=== PATIENT | male | born 1985 | race Caucasian/White ===

== ENCOUNTER 2020-10-08 18:42 | Emergency (ER) | payer BC, SELFPAY ==
--- NOTE | ~2020-10-08 | XR_ITS ---
EXAMINATION: XR CHEST CLINICAL INFORMATION: Right-sided chest pain COMPARISON: 05/19/2019 TECHNIQUE: 2 views of the chest were obtained. FINDINGS: No significant abnormality is noted involving the heart, lungs, mediastinum, bony thorax or soft tissues. XR/XR chest 2V IMPRESSION: Unremarkable examination.
[2020-10-08 20:12] VITALS: BP 150/88; PULSE 75; RESP 20; TEMP 36.6; O2SAT 98; BMI 28.3
[2020-10-08 20:38] LABS: Glucose Urine UA NEG (NEG); Leukocyte Esterase Urine NEG (NEG); Nitrite Urine NEG (NEG); Urine Blood NEG (NEG); Urine Ketones NEG (NEG); Urine Protein NEG (NEG-TRACE)
[2020-10-08 20:39] LABS: Appearance Urine CLEAR; Color Urine YELLOW
--- NOTE | 2020-10-08 21:23 | ED_ITS ---
HPI - General Adult General Chief complaint: General Medical Stated complaint: SIDE PAIN Time Seen by Provider: 10/08/20 21:21 Source: patient Mode of arrival: ambulatory History of Present Illness HPI narrative: 35-year-old male presents with 2-3 weeks mid right back discomfort that does not get worse with deep inspiration or movement and is not radiating in nature. He denies any identifiable trauma, new exercise regimen, fevers, chills, cough, GI symptoms, but does endorse urinary frequency. Over the course of this time he has not taken anything for the pain other than lidocaine patch. Related Data Allergies Allergy/AdvReac Type Severity Reaction Status Date / Time No Known Allergies Allergy Verified 10/08/20 20:12 Review of Systems Review of Systems: Pertinent positives and negatives as stated in HPI 10 point review systems otherwise negative. FOR[facility]LY [facility], LATER [facility] Past Medical History Source: nursing notes reviewed Medical History No known health problems Social History Social History Advance Directives: No Advance Directives Information Provided: Yes Physical Exam Vital Signs: Vital Signs: Last Vital Signs Temp 98.7 F 10/08/20 21:58 Pulse 65 10/08/20 21:58 Resp 18 10/08/20 21:58 BP 156/86 H 10/08/20 21:58 Pulse Ox 100 10/08/20 21:58 Body Mass Index 28.3 VITAL SIGNS: Reviewed. GENERAL: Well developed, well nourished, in no acute distress. HEAD: Normocephalic/atraumatic EYES: PERRLA, EOMI OROPHARYNX: no oral lesions noted, posterior pharynx clears NECK: Supple, no adenopathy LUNGS: Normal breath sounds. No adventitious sounds or accessory muscle use. SpO2<98> CARDIOVASCULAR: Regular rate and rhythm without noted murmurs ABDOMEN: Soft, non-tender, non-distended with bowel sounds. BACK: No identifiable bowl deformity, no CVA tenderness,?Spasm NEUROLOGIC: Alert and oriented x 4. Course Course Course Narrative: 35-year-old male with history and clinical presentation consistent with chronic back pain and possible muscle strain/spasm. Will rule out pulmonary/renal etiologies. Review of all investigations negative for any evidence pneumonia, renal dysfunction and clinical exam doubt any intra-abdominal pathologies that would necessitate CT scan. On re-evaluation after receiving combination analgesics patient reports improvement and understands he will need to follow up with his primary care provider. Medical Decision Making Lab Data Result diagrams: 10/08/20 21:34 10/08/20 21:34 Labs: Lab Results 10/08/20 10/08/20 10/08/20 Range/Units 20:29 21:34 21:34 WBC 6.4 (4.8-10.8) X10*3/uL RBC 5.39 (4.60-5.80) X10*6/uL Hgb 16.1 (14.0-18.0) g/dl Hct 45.3 (42-52) % MCV 84.0 (80-98) fL MCH 29.9 (27.0-33.0) pg MCHC 35.5 (31.0-36.0) g/dl RDW 11.6 (11.0-16.0) % Plt Count 214 (160-400) X10*3/uL MPV 11.1 (9.4-12.4) fL Immature Gran % (Auto) 0.3 (0.0-0.4) % Neut % (Auto) 44.9 L (45-73) % Lymph % (Auto) 40.3 H (20-40) % [place] % (Auto) 8.7 (2-11) % Eos % (Auto) 5.0 H (0-4) % Baso % (Auto) 0.8 (0-2) % Lymph # (Auto) 2.6 (1.2-4.9) X10*3/uL [place] # (Auto) 0.6 (0.1-1.2) X10*3/uL Eos # (Auto) 0.3 (0.0-0.4) X10*3/uL Baso # (Auto) 0.1 (0.0-0.2) X10*3/uL Abs Immat Gran (auto) 0.02 (0.00-0.03) X10*3/uL Absolute Neuts (auto) 2.9 (2.0-8.3) X10*3/uL Absolute Nucleated RBC 0.000 (0.0-0.012) X10*3/uL Nucleated RBC % (auto) 0.0 (0.0-0.2) /100WBC Sodium 138 (135-145) mmol/L Potassium 4.0 (3.3-5.1) mmol/L Chloride 104 (96-108) mmol/L Carbon Dioxide 26 (22-29) mmol/L Anion Gap 12 (12-20) BUN 8 L (9-16) mg/dL Creatinine 0.85 (0.5-1.4) mg/dL Estim Creat Clear Calc 126.7 Estimated GFR > 60 Random Glucose 87 (60-115) mg/dL Calcium 9.5 (8.4-10.2) mg/dL Total Bilirubin 0.6 (0.0-1.0) mg/dL AST 18 (5-37) U/L ALT 21 (0-40) U/L Alkaline Phosphatase 76 (39-117) U/L Total Protein 8.0 (6.5-8.0) g/dL Albumin 4.7 (3.5-5.0) g/dL Urine Color YELLOW Urine Appearance CLEAR Urine pH 7.0 (5.0-8.0) Ur Specific [place] 1.010 (1.005-1.025) Urine Protein NEG (NEG-TRACE) MG/DL Urine Glucose (UA) NEG (NEG) MG/DL Urine Ketones NEG (NEG) MG/DL Urine Blood NEG (NEG) Urine Nitrite NEG (NEG) Ur Leukocyte Esterase NEG (NEG) Discharge Plan Discharge Clinical Impression: Muscle strain Patient Disposition: Home, Self-Care Instructions: Muscle Strain (ED), Muscle Spasm (ED) Additional Instructions: 1. Tylenol 1000 mg, orally, every 6 hours as needed for pain control. Do not exceed 4000 mg within 24 hours. 2. Ibuprofen 400 mg, orally with milk or food, every 6 hours as needed for pain control. Take this medication with Tylenol for added benefit and symptom relief. 3. Lidocaine patch, these are available in every [facility], please apply to area of maximal pain as directed on the outside packaging. 4. Please follow-up with your primary care provider for re-evaluation and discussion regarding your blood pressure. Do not hesitate to return to the emergency department for any acute worsening of your symptoms. Referrals: Charlotte Tay MD [Primary Care Provider] - 2 days (Re-evaluation after negative workup for right mid back pain. Patient has some concerns regarding his blood pressure (155/80).)
[2020-10-08 21:26] VITALS: BP 169/91; PULSE 67; RESP 16; O2SAT 99
[2020-10-08 21:38] LABS: MANUAL DIFF FLAG NO
[2020-10-08] MEDS: Lidocaine 4 % Patch ADH..PATCH 1 PATCH TRANSDERMA (21:43)
[2020-10-08] MEDS: Acetaminophen 325 MG TABLET 975 MG PO (21:43)
[2020-10-08] MEDS: Ketorolac Tromethamine 15 MG/ML VIAL IM (21:43)
[2020-10-08 21:46] LABS: Basophils Absolute Auto 0.1 X10*3/uL (0.0-0.2); Basophils Percent Auto 0.8 % (0-2); Eosinophils Absolute Auto 0.3 X10*3/uL (0.0-0.4); Hematocrit 45.3 % (42-52); Hemoglobin 16.1 g/dl (14.0-18.0); Imm Gran Abs Auto 0.02 X10*3/uL (0.00-0.03); Imm Gran Pct Auto 0.3 % (0.0-0.4); Lymphocytes Absolute Auto 2.6 X10*3/uL (1.2-4.9); Lymphocytes Percent Auto 40.3 % (20-40); Mean Corpuscular HGB Conc 35.5 g/dl (31.0-36.0); Mean Corpuscular Hemoglobin 29.9 pg (27.0-33.0); Mean Platelet Volume 11.1 fL (9.4-12.4); Monocytes Absolute Auto 0.6 X10*3/uL (0.1-1.2); Monocytes Percent Auto 8.7 % (2-11); Neutrophils Absolute Auto 2.9 X10*3/uL (2.0-8.3); Neutrophils Percent Auto 44.9 % (45-73); Platelet Count 214 X10*3/uL (160-400); Red Blood Count 5.39 X10*6/uL (4.60-5.80); Red Cell Distribution Width 11.6 % (11.0-16.0); White Blood Count 6.4 X10*3/uL (4.8-10.8)
[2020-10-08 21:58] VITALS: BP 156/86; PULSE 65; RESP 18; TEMP 37.1; O2SAT 100
[2020-10-08 22:07] LABS: Alanine Aminotransferase 21 U/L (0-40); Albumin Level 4.7 g/dL (3.5-5.0); Alkaline Phosphatase 76 U/L (39-117); Anion Gap 12 (12-20); Aspartate Amino Transferase 18 U/L (5-37); Bilirubin Total 0.6 mg/dL (0.0-1.0); Blood Urea Nitrogen 8 mg/dL (9-16); Calcium 9.5 mg/dL (8.4-10.2); Carbon Dioxide 26 mmol/L (22-29); Chloride 104 mmol/L (96-108); Creatinine Clr Calc Pharmacy 126.7; Estimated Glomerular Filt Rate > 60; Glucose Random 87 mg/dL (60-115); Sodium 138 mmol/L (135-145)
== END 2020-10-08 23:46 | disposition home or self-care (01) ==
PROVIDERS: Emergency Provider Student in an Organized Health Care Education/Training Program; PCP Internal Medicine
DX: S39.012A Strain of muscle, fascia and tendon of lower back, initial encounter (principal); X58.XXXA Exposure to other specified factors, initial encounter; Y93.9 Activity, unspecified; Y92.9 Unspecified place or not applicable; Y99.9 Unspecified external cause status
CPT/HCPCS: 36415; 71046; 80053; 81003; 85025; 96372; 99284; J1885